=== PATIENT | male | born 2000 | race Caucasian/White ===

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

== ENCOUNTER 2019-07-09 21:59 | Emergency (ER) | payer OTHER ==
[2019-07-09 22:11] VITALS: BP 140/71
[2019-07-09] MEDS ORDERED: Ibuprofen TAB* 400 MG PO ONE (22:15)
[2019-07-09] MEDS ORDERED: Amoxicillin PO (*) 500 MG CAP PO ONE (22:15)
--- NOTE | 2019-07-09 22:16 | UC ---
Ear Complaint HPI - HPI Summary HPI Summary: 18 yo male presents with left ear pain. He tells me that for the last week or so he has had sinus congestion and a dry cough. Over the last 2 days has had a mild left earache, but tonight his left ear pain significantly worsened. He took tylenol with little relief. Denies fever, chills, rash, SOB, n/v. - History of Current Complaint Chief Complaint: UCEar Stated Complaint: EARACHE Time Seen by Provider: 07/09/19 22:12 Hx Obtained From: Patient Onset/Duration: Gradual Onset Severity Initially: Moderate Severity Currently: Severe Pain Intensity: 8 Pain Scale Used: 0-10 Numeric - Allergies/Home Medications Allergies/Adverse Reactions: Allergies Allergy/AdvReac Type Severity Reaction Status Date / Time No Known Allergies Allergy Verified 07/09/19 22:11 Home Medications: Home Medications Pseudoephedrine TAB* [Sudafed TAB*] 60 mg PO Q6HR 07/09/19 [History Confirmed ] diphenhydrAMINE HCl [Benadryl Allergy] 15 mg PO DAILY 07/09/19 [History Confirmed 07/09/19] PMH/Surg Hx/FS Hx/Imm Hx - Additional Past Medical History Additional PMH: None Other History Of: Negative For: Anticoagulant Therapy - Surgical History Surgical History: Yes Surgery Procedure, Year, and Place: 2014 diogo insertion right leg - Family History Known Family History: Negative: Seizure Disorder - Social History Occupation: Student Lives: With Family Alcohol Use: Weekly Substance Use Type: None Smoking Status (MU): Former Smoker Review of Systems All Other Systems Reviewed And Are Negative: No Constitutional: Positive: Negative Skin: Positive: Negative Eyes: Positive: Negative ENT: Positive: Ear Ache, Nasal Discharge Respiratory: Positive: Cough Cardiovascular: Positive: Negative Gastrointestinal: Positive: Negative Physical Exam - Summary Physical Exam Summary: GENERAL: NAD. WDWN. No pain distress. SKIN: No rashes, sores, lesions, or open wounds. HEENT: Head: AT/NC Eyes: EOM intact. Conjunctiva clear without inflammation or discharge. Ears: Hearing grossly normal. LEFT TM with moderate erythema and bulging. No canal edema or drainage. Nose: Nasal mucosa pink and moist. NTTP maxillary and frontal sinus. Throat: Posterior oropharynx without exudates, erythema, or tonsillar enlargement. Uvula midline. NECK: Supple. Nontender. No lymphadenopathy. CHEST: CTAB. No r/r/w. No accessory muscle use. Breathing comfortably and in no distress. CV: RRR. Without m/r/g. Pulses intact. NEURO: Alert. PSYCH: Age appropriate behavior. Triage Information Reviewed: Yes Vital Signs: Initial Vital Signs Temp 96.7 F 07/09/19 22:02 Pulse 71 07/09/19 22:02 Resp 16 07/09/19 22:02 BP 140/71 07/09/19 22:02 Pulse Ox 100 07/09/19 22:02 Vital Signs Reviewed: Yes Ear Complaint Course/Dx - Course Course Of Treatment: Left otitis media - Differential Dx/Diagnosis Provider Diagnosis: Otitis media Discharge ED - Sign-Out/Discharge Documenting (check all that apply): Patient Departure All imaging exams completed and their final reports reviewed: No Studies - Discharge Plan Condition: Stable Disposition: HOME Prescriptions: Amoxicillin PO (*) [Amoxicillin 875 MG (*)] 875 mg PO BID #14 tab Patient Education Materials: Ear Infection (ED) Referrals: No Primary Care Phys,NOPCP [Primary Care Provider] - Additional Instructions: If you develop a fever, shortness of breath, chest pain, new or worsening symptoms - please call your PCP or go to the ED immediately. May take tylenol/ibuprofen as directed for your discomfort - Billing Disposition and Condition Condition: STABLE Disposition: Home
== END 2019-07-09 22:23 | disposition home or self-care (01) ==
LOC: UCEAST 21:59
DX: H66.92 Otitis media, unspecified, left ear (principal); Z87.891 Personal history of nicotine dependence
CPT/HCPCS: 99212; A9270-GY; G0463